=== PATIENT | male | born 1990 | race African-American/Black ===

== ENCOUNTER 2016-09-06 01:23 | Emergency (ER) | payer OTHER ==
[~2016-09-06] VITALS: Ht 182.9 cm; Wt 77.1 kg
--- NOTE | 2016-09-06 01:42 | ED AMS/SEIZURE/WEAK/DIZZY ---
See Addendum History of Present Illness General Chief Complaint: ETOH/Drug Related Complaint Stated Complaint: BIBA FOR ?OVERDOSE Source: patient, old records, EMS Exam Limitations: clinical condition Vital Signs & Intake/Output Vital Signs & Intake/Output Vital Signs Date Time Temp Pulse Resp B/P Pulse O2 O2 Flow FiO2 Ox Delivery Rate 09/06 0614 63 18 142/81 99 Room Air 09/06 0332 96.7 66 16 150/97 98 Room Air 09/06 0127 96.9 66 16 136/71 97 Room Air Triage Note: PT BIBA FROM WORKPLACE. PER EMS PT WAS FOUND ON FLOOR UNRESPONSIVE BUT BREATHING. PT ARRIVES TO ED CONFUSED AND NOT ANSWERING MANY QUESTIONS. PT REPEATIDLY PULLS AT IV THAT WAS ESTABLISHED IN EMS. Triage Nurses Notes Reviewed? yes HPI: Patient presents for evaluation of altered mental status. The patient himself is unable to provide any substantial history. He denies any alcohol or drug use but is unable to state why he is here in the emergency department. According to EMS he was found unresponsive at his workplace. Past History Travel History Traveled to [place] past 21 day No Medical History Any Pertinent Medical History? see below for history Surgical History Surgical History: unobtainable Family History Hx Contributory? No (UNOBTAINABLE) Review of Systems Review of Systems Constitutional: Reports: see HPI. Physical Exam Physical Exam General Appearance: SEE BELOW Comments: Gen.: Well-nourished, well-developed, no acute respiratory distress. Mild stupor, Chemical odor. Head: Normocephalic, atraumatic. Eyes: Normal inspection bilaterally, PERRLA, EOMI (by passive observation) Ears: Normal inspection bilaterally Nose: Normal inspection Throat/mouth : Moist mucosa Neck: Supple, full range of motion, no goiter Heart: Regular rate and rhythm, no murmurs rubs or gallops Lungs: Clear to auscultation bilaterally with normal air entry Chest: Nontender Back: Normal range of motion Abdomen: Soft, nontender, nondistended, normal bowel sounds Extremities: Normal range of motion grossly, equal radial pulses, no cyanosis clubbing or edema Neurologic: Cranial nerves grossly intact, speech is sluggish, paucity of speech Skin: warm and dry Psychiatric: Calm, unable to assess further Core Measures ACS in differential dx? No CVA/TIA Diagnosis: No Severe Sepsis Present: No Septic Shock Present: No Progress Differential Diagnosis: DRUG INTOXICATION Plan of Care: Orders Procedure Date/time Status Telemetry/Machine Cloth Examiner 09/06 302 Active URINE DRUG SCREEN FOR ER ONLY 09/06 140 Active ETHANOL 09/06 140 Complete CBC WITHOUT DIFFERENTIAL 09/06 140 Complete BASIC METABOLIC PANEL 09/06 140 Complete Laboratory Tests 09/06/16 0636: Methadone Screen Pending, Barbiturate Screen Pending, Ur Phencyclidine Scrn Pending, Amphetamines Screen Pending, U Benzodiazepines Scrn Pending, Urine Cocaine Screen Pending, Urine Cannabis Screen Pending 09/06/16 0245: Bicarbonate Actual 31 H, Mixed VBG pH 7.36, Mixed VBG pCO2 56 H, Mixed VBG O2 Saturation 35, P-50 (Temp Corrected) N, Oxyhemoglobin 60.1 L, Carboxyhemoglobin 3.6, Methemoglobin 0.3, Calc Total Hemoglobin 14.2, Oxygen Content 12.0 L, O2 Concentration % RA, Phlebotomy Draw Site VENOUS 09/06/16143: Anion Gap 13, Estimated GFR > 60, BUN/Creatinine Ratio 9.2, Glucose 93, Calcium 9.8, CBC w Diff NO MAN DIFF REQ, RBC 4.45 L, MCV 90.3, MCH 31.2 H, RDW 13.2, MPV 8.1, Gran % 68.7, Lymphocytes % 20.6, Monocytes % 9.6 H, Eosinophils % 0.7, Basophils % 0.4, Absolute Granulocytes 3.5, Absolute Lymphocytes 1.1 L, Absolute Monocytes 0.5, Absolute Eosinophils 0, Absolute Basophils 0, PUBS MCHC 34.5, Serum Alcohol < 10.0 Diagnostic Imaging: Discussed w/RAD: CT Scan. Radiology Impression: PATIENT: SREEDHAR SANFORD JR PRESENT AGE: 26 PATIENT ACCOUNT NO: [id number] : 89 LOCATION: [facility] ORDERING PHYSICIAN: RAHEL DANG MD SERVICE DATE: 09/06/16 EXAM TYPE: CAT - CT HEAD WO IV CONTRAST EXAMINATION: CT HEAD WITHOUT CONTRAST CLINICAL INFORMATION: Found unresponsive at work COMPARISON: None TECHNIQUE: Contiguous axial imaging was performed from the skull base to vertex without intravenous administration of contrast. Coronal reformatted images performed at CT scanner DLP: 1301.29 mGy-cm FINDINGS: There is no evidence of acute intracranial hemorrhage or territorial infarction. No abnormal mass effect or midline shift is seen. [place] to white matter differentiation is well preserved. No extra-axial fluid collections are identified. The ventricles are normal in size. There is no abnormal attenuation within the brain parenchyma. The osseous structures and soft tissues are normal. The mastoid air cells and visualized portions of the paranasal sinuses are well aerated. IMPRESSION: No acute intracranial pathology. DICTATED BY: RAMÍREZ LARSON MD DATE/TIME DICTATED:09/06/16221 SURGICAL SUPPLIES STERILIZER :MICHAEL DATE/TIME TRANSCRIBED:09/06/16221 CONFIDENTIAL, DO NOT COPY WITHOUT APPROPRIATE AUTHORIZATION. <Electronically signed in Other Vendor System> SIGNED BY: RAMÍREZ LARSON MD 09/06/16226 CXR Impression: PATIENT: SREEDHAR SANFORD JR PRESENT AGE: 26 PATIENT ACCOUNT NO: [id number] : 89 LOCATION: [facility] ORDERING PHYSICIAN: RAHEL DANG MD SERVICE DATE: 09/06/16 EXAM TYPE: RAD - XRY-PORTABLE CHEST XRAY EXAMINATION: XR PORTABLE CHEST CLINICAL INFORMATION: Found unresponsive at work COMPARISON: None TECHNIQUE: Portable AP view of the chest was obtained. FINDINGS: No significant abnormality is noted involving the heart, lungs, mediastinum, bony thorax or soft tissues. IMPRESSION: Unremarkable examination. DICTATED BY: RAMÍREZ LARSON MD DATE/TIME DICTATED:09/06/16220 SURGICAL SUPPLIES STERILIZER:MICHAEL DATE/TIME TRANSCRIBED:09/06/16220 CONFIDENTIAL, DO NOT COPY WITHOUT APPROPRIATE AUTHORIZATION. <Electronically signed in Other Vendor System> SIGNED BY: RAMÍREZ LARSON MD 09/06/16224 Initial ED EKG: none Comments: 09/06/2016 6:46:19 AM patient's mentation has improved steadily during his emergency department stay. At this point his speech is clear and his gait is stable. He lives with his parents and I feel he is now stable for discharge. Departure Departure Disposition: HOME OR SELF CARE Condition: Stable Clinical Impression Primary Impression: Intoxication by drug Qualifiers: Complication of substance-induced condition: uncomplicated Qualified Code: F19.920 - Other psychoactive substance use, unspecified with intoxication, uncomplicated Additional Instructions: Avoid drugs and alcohol. Follow-up with your primary care physician this week. Return if any concerns or sudden worsening. Departure Forms: Customer Survey General Discharge Information
[2016-09-06 01:52] LABS: ABSOLUTE BASOPHIL COUNT 0 /CUMM (0.0-0.2); ABSOLUTE EOSINOPHIL COUNT 0 /CUMM (0.0-0.7); ABSOLUTE GRANULOCYTE CT 3.5 /CUMM (1.4-6.5); ABSOLUTE LYMPH COUNT 1.1 /CUMM (1.2-3.4); ABSOLUTE MONOCYTE COUNT 0.5 /CUMM (0.10-0.60); BASOPHIL % 0.4 % (0.0-2.0); EOSINOPHIL % 0.7 % (0-5); GRANULOCYTE % 68.7 % (42.2-75.2); HEMATOCRIT 40.1 % (42-52); MEAN CORPUSCULAR HGB 31.2 PG (27.0-31.0); MEAN CORPUSCULAR HGB CONC 34.5 G/DL (33.0-37.0); MEAN CORPUSCULAR VOLUME 90.3 FL (80.0-94.0); MEAN PLATELET VOLUME 8.1 FL (7.4-10.4); PLATELET COUNT 151 /CUMM (130-400); RBC DISTRIBUTION WIDTH 13.2 % (11.5-14.5); RED BLOOD CELL CT 4.45 /CUMM (4.70-6.10); WHITE BLOOD CELL COUNT 5.1 /CUMM (4.8-10.8)
--- NOTE | 2016-09-06 02:25 | RADIOLOGY REPORT ---
EXAMINATION: XR PORTABLE CHEST CLINICAL INFORMATION: Found unresponsive at work COMPARISON: None TECHNIQUE: Portable AP view of the chest was obtained. FINDINGS: No significant abnormality is noted involving the heart, lungs, mediastinum, bony thorax or soft tissues. IMPRESSION: Unremarkable examination.
--- NOTE | 2016-09-06 02:27 | CT SCAN REPORT ---
EXAMINATION: CT HEAD WITHOUT CONTRAST CLINICAL INFORMATION: Found unresponsive at work COMPARISON: None TECHNIQUE: Contiguous axial imaging was performed from the skull base to vertex without intravenous administration of contrast. Coronal reformatted images performed at CT scanner DLP: 1301.29 mGy-cm FINDINGS: There is no evidence of acute intracranial hemorrhage or territorial infarction. No abnormal mass effect or midline shift is seen. [place] to white matter differentiation is well preserved. No extra-axial fluid collections are identified. The ventricles are normal in size. There is no abnormal attenuation within the brain parenchyma. The osseous structures and soft tissues are normal. The mastoid air cells and visualized portions of the paranasal sinuses are well aerated. IMPRESSION: No acute intracranial pathology.
[2016-09-06] MEDS ORDERED: LEVETIRACETAM1000 M1 PO (08:05)
[2016-09-06 14:03] VITALS: BP 132/74
== END 2016-09-06 14:52 ==
LOC: ERH 01:23
PROVIDERS: Emergency Medicine
DX: F19.920 Other psychoactive substance use, unspecified with intoxication, uncomplicated (principal); G40.409 Other generalized epilepsy and epileptic syndromes, not intractable, without status epilepticus
CPT/HCPCS: 80307; 96365; G0480; J1953